=== PATIENT | female | born 1950 | race Caucasian/White ===

== ENCOUNTER 2019-08-25 09:46 | Outpatient (CLI) | payer MEDICARE ==
[2019-08-25 11:11] LABS: BASOPHILS # (AUTO) 0.04 x10^3/uL (0-0.1); BASOPHILS % (AUTO) 1 % (0-1); EOSINOPHILS # (AUTO) 0.03 x10^3/uL (0-0.4); EOSINOPHILS % (AUTO) 1 % (1-7); LYMPHOCYTES # (AUTO) 2.04 x10^3/uL (1-3.4); LYMPHOCYTES % (AUTO) 38 % (22-44); MD NO; MEAN CORPUSCULAR HEMOGLOBIN 30.6 pg (27.0-34.8); MEAN CORPUSCULAR HGB CONC 33.2 g/dL (32.4-35.8); MEAN CORPUSCULAR VOLUME 92.1 fL (80-100); MEAN PLATELET VOLUME 7.7 fL (7.4-10.4); MONOCYTES # (AUTO) 0.37 x10^3/uL (0.2-0.8); MONOCYTES % (AUTO) 7 % (2-9); NEUTROPHILS # (AUTO) 2.81 x10^3/uL (1.8-6.8); NEUTROPHILS % (AUTO) 53 % (42-75); PLATELET COUNT 295 x10^3/uL (130-400); RED BLOOD COUNT 4.84 x10^6/uL (3.82-5.3); RED CELL DISTRIBUTION WIDTH 13.5 % (9.6-15.2)
[2019-08-25 11:25] LABS: INTERNATIONAL NORMALIZED RATIO 4.35 (0.93-1.1)
[2019-08-25 11:38] LABS: PROTHROMBIN TIME 46.8 Seconds (9.6-11.5)
[2019-08-25] MEDS ORDERED: DIPH25TA52 PO (13:05)
[2019-08-25] MEDS ORDERED: WARF-36 PO (13:05)
== END 2019-08-25 23:59 | disposition home or self-care (01) ==
LOC: STAR 09:46
PROVIDERS: ATTEND Surgery
DX: Z01.818 Encounter for other preprocedural examination (principal); Z11.59 Encounter for screening for other viral diseases; Z89.611 Acquired absence of right leg above knee
CPT/HCPCS: 36415; 85025; 85610; 85730; 93005; U0001

== ENCOUNTER 2019-08-29 08:29 | Inpatient (IN) | payer MEDICARE ==
[~2019-08-29] VITALS: Ht 162.6 cm; Wt 58.0 kg
[~2019-08-29 08:29] MED LIST: DIPH25TA52 PO; WARF-36 PO
[2019-08-29] MEDS ORDERED: LACTATED RINGERS 1,000 ML IV SCH (08:38)
[2019-08-29] MEDS ORDERED: HYDR-3240 PO (08:53)
[2019-08-29] MEDS ORDERED: TRAZ-175 PO (08:53)
[2019-08-29] MEDS ORDERED: CHLORHEXIDINE 15 ML UDC ONE (08:58)
[2019-08-29] MEDS ORDERED: LORazepam 2 MG/ML, 1ML IVPush PRN (09:00)
[2019-08-29] MEDS ORDERED: ONDANSETRON 2MG/ML, 2ML IVPush PRN (09:00)
[2019-08-29] MEDS ORDERED: MIDAZOLAM 1 MG/ML, 2ML IV PRN (09:00)
[2019-08-29] MEDS ORDERED: EPHEDRINE 50 MG/ML, 1ML IVPush PRN (09:00)
[2019-08-29] MEDS ORDERED: MEPERIDINE/PF 25MG/0.5ML IVPush PRN (09:00)
[2019-08-29] MEDS ORDERED: HYDROmorphone 1 MG/ML, 1ML INJ IVPush PRN (09:00)
[2019-08-29] MEDS ORDERED: CHLORHEXIDINE 15 ML UDC MM ONE (09:00)
[2019-08-29] MEDS ORDERED: hydrALAzine 20 MG/ML, 1ML IV PRN ×2 (09:00→16:30)
[2019-08-29] MEDS ORDERED: morphine SULFATE 10 MG/ML, 1ML IVPush PRN (09:00)
[2019-08-29] MEDS ORDERED: DIPHENHYDRAMINE 50 MG/ML, 1ML IVPush PRN (09:00)
[2019-08-29] MEDS ORDERED: OXYcodone 5 MG/5 ML ORAL.SOL UDC PO PRN (09:00)
[2019-08-29] MEDS ORDERED: HYDROcodone/APAP 7.5-325MG/15ML UDC PO PRN (09:00)
[2019-08-29] MEDS ORDERED: HALOPERIDOL 5 MG/ML IV PRN (09:00)
[2019-08-29] MEDS ORDERED: LABETALOL 5MG/ML, 20ML IV PRN (09:00)
[2019-08-29] MEDS ORDERED: DIAZEPAM 5 MG/ML, 2ML IVPush PRN (09:00)
[2019-08-29] MEDS ORDERED: ALBUTEROL/IPRATROPIUM 2.5MG/0.5MG, 3 ML NPPB PRN (09:00)
[2019-08-29 09:50] LABS: INTERNATIONAL NORMALIZED RATIO 1.07 (0.93-1.1); PROTHROMBIN TIME 11.4 Seconds (9.6-11.5)
[2019-08-29] MEDS ORDERED: DIAZEPAM 5 MG TABLET PO ONE ×2 (10:00→11:30)
[2019-08-29] MEDS ORDERED: FENTANYL PF 100 MCG/2ML ONE ×3 (10:13→14:10)
[2019-08-29] MEDS ORDERED: MIDAZOLAM 1 MG/ML, 2ML ONE ×2 (10:13→14:11)
[2019-08-29] MEDS ORDERED: LIDOCAINE-MPF 2% ,5ML ONE (10:14)
[2019-08-29] MEDS ORDERED: PROPOFOL 10 MG/ML, 20ML ONE (10:14)
[2019-08-29] MEDS ORDERED: GLYCOPYRROLATE 0.2MG/1ML, 5ML ONE (10:14)
[2019-08-29] MEDS ORDERED: DEXAMETHASONE 4 MG/ML, 1ML ONE (10:14)
[2019-08-29] MEDS ORDERED: DIAZEPAM 5 MG TABLET ONE (10:16)
[2019-08-29] MEDS ORDERED: CEFAZOLIN 1,000 MG ONE (12:37)
[2019-08-29] MEDS ORDERED: ROCURONIUM 10 MG/ML,10ML ONE (12:37)
[2019-08-29] MEDS ORDERED: LIDOCAINE 2% 100MG/5ML SYRINGE ONE (13:16)
[2019-08-29] MEDS ORDERED: BUPIVACAINE/PF 0.5% ONE (13:16)
[2019-08-29] MEDS ORDERED: OXYcodone 5 MG/5 ML ORAL.SOL UDC ONE (14:00)
[2019-08-29] MEDS: FENTANYL PF 100 MCG/2ML IV PRN ×4 (14:06→14:48)
[2019-08-29] MEDS: HYDROmorphone PCA 30 MG/30 ML IV PRN (15:05)
[2019-08-29] MEDS ORDERED: DIPHENHYDRAMINE 50 MG/ML, 1ML IV PRN (16:30)
[2019-08-29] MEDS ORDERED: DIPHENHYDRAMINE 25 MG CAPSULE PO PRN (16:30)
[2019-08-29] MEDS: POTASSIUM CHLORIDE 20 MEQ in D5%-0.45% NACL 1,000 ML IV SCH (16:30)
[2019-08-29] MEDS ORDERED: ONDANSETRON 2MG/ML, 2ML IV PRN (17:00)
[2019-08-29] MEDS: ENOXAPARIN 40 MG/0.4 ML SQ SCH (17:36)
[2019-08-29] MEDS ORDERED: MELATONIN 5 MG TABLET PO PRN (18:00)
[2019-08-29 18:40] VITALS: BP 127/64
[2019-08-29] MEDS: TRAZODONE 100MG TABLET PO SCH (21:08)
[2019-08-30 00:05] VITALS: BP 145/70
[2019-08-30] MEDS: POTASSIUM CHLORIDE 20 MEQ in D5%-0.45% NACL 1,000 ML IV SCH ×2 (00:32→21:01)
[2019-08-30 03:37] VITALS: BP 118/64
[2019-08-30 05:37] LABS: BASOPHILS # (AUTO) 0.01 x10^3/uL (0-0.1); BASOPHILS % (AUTO) 0 % (0-1); EOSINOPHILS % (AUTO) 0 % (1-7); LYMPHOCYTES % (AUTO) 9 % (22-44); MD NO; MEAN CORPUSCULAR HEMOGLOBIN 30.4 pg (27.0-34.8); MEAN CORPUSCULAR HGB CONC 32.9 g/dL (32.4-35.8); MEAN CORPUSCULAR VOLUME 92.3 fL (80-100); MONOCYTES % (AUTO) 7 % (2-9); NEUTROPHILS # (AUTO) 10.06 x10^3/uL (1.8-6.8); NEUTROPHILS % (AUTO) 84 % (42-75); PLATELET COUNT 282 x10^3/uL (130-400); RED BLOOD COUNT 4.38 x10^6/uL (3.82-5.3); RED CELL DISTRIBUTION WIDTH 13.5 % (9.6-15.2)
[2019-08-30 05:47] LABS: ALBUMIN 3.7 g/dL (3.4-5.0); ANION GAP 8 mmol/L (5-15); CALCIUM 9.2 mg/dL (8.5-10.1); CHLORIDE 103 mmol/L (98-107); CREATININE 1.03 mg/dL (0.55-1.02)
[2019-08-30] MEDS ORDERED: ALBUTEROL SULFATE 2.5 MG/3 ML NPPB PRN (06:00)
[2019-08-30 08:32] VITALS: BP 141/59
[2019-08-30 12:41] VITALS: BP 130/69
[2019-08-30] MEDS: ENOXAPARIN 40 MG/0.4 ML SQ SCH (17:51)
[2019-08-30 20:28] VITALS: BP 148/63
[2019-08-30] MEDS: TRAZODONE 100MG TABLET PO SCH (21:01)
[2019-08-31] MEDS: HYDROmorphone PCA 30 MG/30 ML IV PRN (00:05)
[2019-08-31 03:48] VITALS: BP 165/66
[2019-08-31 04:44] LABS: BASOPHILS # (AUTO) 0.03 x10^3/uL (0-0.1); BASOPHILS % (AUTO) 0 % (0-1); EOSINOPHILS % (AUTO) 0 % (1-7); LYMPHOCYTES # (AUTO) 1.44 x10^3/uL (1-3.4); LYMPHOCYTES % (AUTO) 17 % (22-44); MD NO; MEAN CORPUSCULAR HEMOGLOBIN 29.9 pg (27.0-34.8); MEAN CORPUSCULAR HGB CONC 32.2 g/dL (32.4-35.8); MEAN CORPUSCULAR VOLUME 92.7 fL (80-100); MEAN PLATELET VOLUME 7.8 fL (7.4-10.4); MONOCYTES # (AUTO) 0.81 x10^3/uL (0.2-0.8); MONOCYTES % (AUTO) 10 % (2-9); NEUTROPHILS # (AUTO) 6.16 x10^3/uL (1.8-6.8); NEUTROPHILS % (AUTO) 73 % (42-75); PLATELET COUNT 249 x10^3/uL (130-400); RED BLOOD COUNT 4.14 x10^6/uL (3.82-5.3); RED CELL DISTRIBUTION WIDTH 13.5 % (9.6-15.2)
[2019-08-31 04:52] LABS: ALANINE AMINOTRANSFERASE 29 U/L (12-78); ALBUMIN 3.5 g/dL (3.4-5.0); ANION GAP 8 mmol/L (5-15); CALCIUM 8.8 mg/dL (8.5-10.1); CHLORIDE 101 mmol/L (98-107); CREATININE 1.07 mg/dL (0.55-1.02)
[2019-08-31 04:55] LABS: ALKALINE PHOSPHATASE 54 U/L (45-117); BILIRUBIN,TOTAL 0.7 mg/dL (0.2-1.0); TOTAL PROTEIN 6.6 g/dL (6.4-8.2)
[2019-08-31] MEDS: POTASSIUM CHLORIDE 20 MEQ in D5%-0.45% NACL 1,000 ML IV SCH ×2 (05:24→16:55)
[2019-08-31] MEDS: KETOROLAC 30 MG/1 ML IV PRN (07:28)
[2019-08-31] MEDS: GABAPENTIN 100 MG CAPSULE PO PRN (08:57)
[2019-08-31] MEDS: OXYcodone/APAP 5/325MG TABLET PO PRN ×4 (08:57→21:52)
[2019-08-31] MEDS ORDERED: HYDROmorphone PCA 30 MG/30 ML IV PRN (09:00)
[2019-08-31 09:21] VITALS: BP 112/60
[2019-08-31 15:32] VITALS: BP 117/68
[2019-08-31] MEDS: ENOXAPARIN 40 MG/0.4 ML SQ SCH (16:55)
[2019-08-31 19:33] VITALS: BP 147/74
[2019-08-31] MEDS: TRAZODONE 100MG TABLET PO SCH (21:21)
[2019-09-01 00:45] VITALS: BP 133/70
[2019-09-01] MEDS: POTASSIUM CHLORIDE 20 MEQ in D5%-0.45% NACL 1,000 ML IV SCH ×3 (03:18→23:30)
[2019-09-01] MEDS: OXYcodone/APAP 5/325MG TABLET PO PRN ×5 (05:24→22:02)
[2019-09-01 07:05] VITALS: BP 130/81
[2019-09-01] MEDS: KETOROLAC 30 MG/1 ML IV PRN (07:59)
[2019-09-01] MEDS: GABAPENTIN 100 MG CAPSULE PO PRN (07:59)
[2019-09-01 13:15] VITALS: BP 128/62
[2019-09-01] MEDS: GABAPENTIN 300 MG CAPSULE PO SCH ×2 (17:15→21:07)
[2019-09-01] MEDS: ENOXAPARIN 40 MG/0.4 ML SQ SCH (17:15)
[2019-09-01 19:03] VITALS: BP 121/56
[2019-09-01] MEDS: FENTANYL PF 100 MCG/2ML IVPush PRN ×2 (20:54→21:07)
[2019-09-01] MEDS: DOCUSATE 100 MG CAPSULE PO SCH (21:07)
[2019-09-01] MEDS: TRAZODONE 100MG TABLET PO SCH (21:07)
[2019-09-02 02:09] VITALS: BP 150/72
[2019-09-02] MEDS: OXYcodone/APAP 5/325MG TABLET PO PRN ×4 (02:14→13:59)
[2019-09-02 07:00] VITALS: BP 165/78
[2019-09-02] MEDS: GABAPENTIN 300 MG CAPSULE PO SCH (08:14)
[2019-09-02] MEDS: DOCUSATE 100 MG CAPSULE PO SCH (08:14)
[2019-09-02] MEDS: POTASSIUM CHLORIDE 20 MEQ in D5%-0.45% NACL 1,000 ML IV SCH (08:14)
[2019-09-02 09:29] VITALS: BP 155/78
[2019-09-02] MEDS: FENTANYL PF 100 MCG/2ML IVPush PRN (10:44)
[2019-09-02 13:24] VITALS: BP 103/53
[2019-09-02] MEDS ORDERED: OXYC-302 PO (14:00)
[2019-09-02] MEDS ORDERED: OXYC30TA66 PO (14:01)
[2019-09-02] MEDS ORDERED: GABA600T7 PO (14:02)
== END 2019-09-02 14:40 | disposition home health service (06) | DRG 241 ==
LOC: ORIP 08:29 → EDSTATUS 11:00 → 4NE 15:57 → DCLOUNGE 09-02 14:24
PROVIDERS: ADMIT Surgery; ATTEND Surgery
PROC: 0Y6H0Z1 Detachment at Right Lower Leg, High, Open Approach (ICD-10-PCS; principal; 2019-08-29 11:00)
DX: I70.221 Atherosclerosis of native arteries of extremities with rest pain, right leg (principal); D72.829 Elevated white blood cell count, unspecified; F51.04 Psychophysiologic insomnia; I25.10 Atherosclerotic heart disease of native coronary artery without angina pectoris; J44.9 Chronic obstructive pulmonary disease, unspecified; G89.29 Other chronic pain; R73.9 Hyperglycemia, unspecified; F17.210 Nicotine dependence, cigarettes, uncomplicated; Z85.828 Personal history of other malignant neoplasm of skin; Z79.01 Long term (current) use of anticoagulants; Z90.49 Acquired absence of other specified parts of digestive tract; Z90.89 Acquired absence of other organs; Z71.6 Tobacco abuse counseling
CPT/HCPCS: 36415; 80048; 80053; 82040; 83036; 85025; 85610; 85730; 88307; 88311; C1729; G0378; J0690; J1100; J1170; J1650; J1885; J2250; J2704; J3010; J3480; J7120

== ENCOUNTER 2019-09-16 21:01 | Inpatient (IN) | payer MEDICARE ==
[~2019-09-16] VITALS: Ht 162.6 cm; Wt 63.0 kg
[~2019-09-16 21:01] MED LIST changes: +GABA600T7 PO; +HYDR-3240 PO; +OXYC-302 PO; +OXYC30TA66 PO; +TRAZ-175 PO
--- NOTE | 2019-09-16 21:03 | NUR ---
PATIENT TRANSPORTED WITH IV HEPARIN THERAPY INITIATED AT 6.9ML/HR
--- NOTE | 2019-09-16 21:16 | NUR ---
PATIENT PLACED ON WEIGHT SCALED BED TO ENSURE PROPER DOSAGE OF HEPARIN THERAPY IF THERAPY IS CONTINUED.
[2019-09-16] MEDS ORDERED: ACETAMINOPHEN 500 MG TABLET ONE (21:18)
[2019-09-16] MEDS ORDERED: ACETAMINOPHEN 500 MG TABLET PO ONE (21:30)
[2019-09-16 21:55] LABS: ALBUMIN 2.5 g/dL (3.4-5.0); ANION GAP 6 mmol/L (5-15); CALCIUM 8.7 mg/dL (8.5-10.1); CHLORIDE 95 mmol/L (98-107)
[2019-09-16] MEDS ORDERED: HEPARIN 25,000 UNITS/250ML PMX 250 ML ONE (22:04)
[2019-09-16] MEDS ORDERED: HEPARIN 5,000 UNITS/ML, 1ML ONE (22:05)
[2019-09-16] MEDS ORDERED: HEPARIN 25,000 UNITS/250ML PMX 250 ML IV PRN (22:30)
[2019-09-16] MEDS ORDERED: HEPARIN 5,000 UNITS/ML, 1ML IV ONE (22:30)
--- NOTE | 2019-09-16 22:37 | NUR ---
ASSIST RN: HEPARIN BOLUS NOT DONE BECAUSE PT WAS BOLUSED AT SENDING FACILITY AND TRANSFERED WITH HEPARIN DRIP.
--- NOTE | 2019-09-16 22:47 | NUR ---
ASSIST RN: PT SITTING IN BED, NO SIGNS OF DISTRESS, NO COMPLAINTS. TOLERATED STRAIGHT CATH WELL. ERP BACK TO BEDSIDE TO UPDATE PT ON POC, ALL QUESTIONS ANSERED. PT POSISTIONED TO COMFORT, CALL LIGHT WITHIN REACH AND PROVIDED FOOD, WITH MD BARRON.
[2019-09-16] MEDS ORDERED: CEFTRIAXONE PMX 1GM/50ML 50 ML IV ONE (23:00)
[2019-09-16 23:02] LABS: MICROSCOPIC INDICATED
[2019-09-16] MEDS: D5%-0.45% NACL 1,000 ML IV SCH (23:36)
[2019-09-16] MEDS ORDERED: CEFTRIAXONE PMX 1GM/50ML 50 ML ONE (23:52)
[2019-09-16] MEDS ORDERED: ONDANSETRON 2MG/ML, 2ML ONE (23:52)
[2019-09-16] MEDS ORDERED: MORPHINE SULFATE 4 MG/ML, 1ML ONE (23:52)
[2019-09-17] MEDS ORDERED: DOCUSATE 100 MG CAPSULE PO PRN
[2019-09-17] MEDS ORDERED: hydrALAzine 20 MG/ML, 1ML IVPush PRN
[2019-09-17] MEDS ORDERED: ONDANSETRON 2MG/ML, 2ML IVPush PRN
[2019-09-17] MEDS ORDERED: morphine SULFATE 10 MG/ML, 1ML IVPush PRN
[2019-09-17] MEDS ORDERED: OXYCODONE HCL PO SCH
[2019-09-17] MEDS ORDERED: ACETAMINOPHEN 325 MG TABLET PO PRN
[2019-09-17] MEDS ORDERED: CYCLOBENZAPRINE 10 MG TABLET PO PRN
[2019-09-17] MEDS ORDERED: MELATONIN 5 MG TABLET PO PRN
[2019-09-17 01:19] VITALS: BP 114/75
[2019-09-17] MEDS ORDERED: HEPARIN GTT MC SCH (01:30)
[2019-09-17] MEDS ORDERED: OXYCONTIN MC SCH (01:30)
[2019-09-17] MEDS: NICOTINE 14MG/24 HR PATCH.TD24 TD SCH (01:34)
[2019-09-17] MEDS ORDERED: HEPARIN 25,000 UNITS/250ML PMX 250 ML IV PRN (03:00)
[2019-09-17 04:49] LABS: MEAN CORPUSCULAR HEMOGLOBIN 29.3 pg (27.0-34.8); MEAN CORPUSCULAR HGB CONC 32.4 g/dL (32.4-35.8); MEAN CORPUSCULAR VOLUME 90.4 fL (80-100); PLATELET COUNT 462 x10^3/uL (130-400); RED BLOOD COUNT 3.36 x10^6/uL (3.82-5.3); RED CELL DISTRIBUTION WIDTH 13.7 % (9.6-15.2)
[2019-09-17 04:56] LABS: BASOPHILS # (AUTO) 0.02 x10^3/uL (0-0.1); BASOPHILS % (AUTO) 0 % (0-1); EOSINOPHILS # (AUTO) 0.01 x10^3/uL (0-0.4); EOSINOPHILS % (AUTO) 0 % (1-7); LYMPHOCYTES # (AUTO) 1.47 x10^3/uL (1-3.4); LYMPHOCYTES % (AUTO) 10 % (22-44); MD NO; MONOCYTES # (AUTO) 1.46 x10^3/uL (0.2-0.8); MONOCYTES % (AUTO) 10 % (2-9); NEUTROPHILS # (AUTO) 12.03 x10^3/uL (1.8-6.8); NEUTROPHILS % (AUTO) 80 % (42-75)
[2019-09-17 04:59] LABS: ANION GAP 10 mmol/L (5-15); CHLORIDE 96 mmol/L (98-107)
[2019-09-17 05:00] LABS: CALCIUM 8.2 mg/dL (8.5-10.1); CREATININE 0.95 mg/dL (0.55-1.02)
[2019-09-17] MEDS: HEPARIN 5,000 UNITS/ML, 1ML IV PRN ×3 (05:19→20:21)
[2019-09-17 07:57] VITALS: BP 114/55
[2019-09-17] MEDS: GABAPENTIN 300 MG CAPSULE PO SCH ×3 (09:29→17:26)
[2019-09-17] MEDS: D5%-0.45% NACL 1,000 ML IV SCH (09:30)
[2019-09-17] MEDS ORDERED: OMNIPAQUE 350 MG/ML, 100ML BOTTLE ONE (12:30)
[2019-09-17 15:59] VITALS: BP 126/70
[2019-09-17 19:20] VITALS: BP 114/71
[2019-09-17] MEDS: OXYcodone/APAP 10/325MG TABLET PO PRN (21:40)
[2019-09-17] MEDS: TRAZODONE 100MG TABLET PO SCH (22:18)
[2019-09-18] MEDS: HEPARIN 25,000 UNITS/250ML PMX 250 ML IV PRN ×2 (00:17→20:45)
[2019-09-18 01:01] VITALS: BP 111/64
[2019-09-18] MEDS: D5%-0.45% NACL 1,000 ML IV SCH ×3 (01:04→17:57)
[2019-09-18] MEDS: NICOTINE 14MG/24 HR PATCH.TD24 TD SCH ×2 (01:05→23:08)
[2019-09-18] MEDS: GABAPENTIN 300 MG CAPSULE PO SCH ×4 (01:05→23:08)
[2019-09-18] MEDS: HEPARIN 5,000 UNITS/ML, 1ML IV PRN ×3 (03:06→23:08)
[2019-09-18 06:55] VITALS: BP 122/69
[2019-09-18] MEDS: OXYcodone/APAP 10/325MG TABLET PO PRN ×2 (09:45→20:56)
[2019-09-18 14:00] VITALS: BP 103/64
[2019-09-18] MEDS: HYDROcodone/APAP 5/325 TABLET PO PRN (17:55)
[2019-09-18 20:38] VITALS: BP 82/48
[2019-09-18] MEDS: TRAZODONE 100MG TABLET PO SCH (20:56)
[2019-09-19 02:13] VITALS: BP 122/66
[2019-09-19] MEDS: OXYcodone/APAP 10/325MG TABLET PO PRN ×3 (02:47→21:22)
[2019-09-19 04:09] LABS: BASOPHILS # (AUTO) 0.03 x10^3/uL (0-0.1); BASOPHILS % (AUTO) 0 % (0-1); EOSINOPHILS # (AUTO) 0.06 x10^3/uL (0-0.4); EOSINOPHILS % (AUTO) 1 % (1-7); LYMPHOCYTES % (AUTO) 15 % (22-44); MD NO; MEAN CORPUSCULAR HEMOGLOBIN 29.8 pg (27.0-34.8); MEAN CORPUSCULAR HGB CONC 32.9 g/dL (32.4-35.8); MEAN CORPUSCULAR VOLUME 90.6 fL (80-100); MEAN PLATELET VOLUME 6.7 fL (7.4-10.4); MONOCYTES # (AUTO) 1.01 x10^3/uL (0.2-0.8); MONOCYTES % (AUTO) 10 % (2-9); NEUTROPHILS # (AUTO) 7.46 x10^3/uL (1.8-6.8); NEUTROPHILS % (AUTO) 74 % (42-75); PLATELET COUNT 552 x10^3/uL (130-400); RED BLOOD COUNT 2.84 x10^6/uL (3.82-5.3)
[2019-09-19 04:19] LABS: ANION GAP 7 mmol/L (5-15); CALCIUM 7.9 mg/dL (8.5-10.1); CHLORIDE 103 mmol/L (98-107); CREATININE 0.68 mg/dL (0.55-1.02)
[2019-09-19] MEDS: D5%-0.45% NACL 1,000 ML IV SCH ×2 (05:00→17:10)
[2019-09-19 07:25] VITALS: BP 101/58
[2019-09-19] MEDS: GABAPENTIN 300 MG CAPSULE PO SCH ×3 (09:00→17:26)
[2019-09-19] MEDS: morphine SULFATE 10 MG/ML, 1ML IVPush PRN ×2 (11:44→14:12)
[2019-09-19] MEDS ORDERED: CHLORHEXIDINE 15 ML UDC MM ONE (13:00)
[2019-09-19 14:19] VITALS: BP 105/58
[2019-09-19] MEDS: HEPARIN 5,000 UNITS/ML, 1ML IV ONE ×2 (17:10→18:12)
[2019-09-19] MEDS: HYDROcodone/APAP 5/325 TABLET PO PRN (17:26)
[2019-09-19] MEDS: HEPARIN 25,000 UNITS/250ML PMX 250 ML IV PRN (18:19)
[2019-09-19 19:07] VITALS: BP 95/50
[2019-09-19] MEDS: TRAZODONE 100MG TABLET PO SCH (21:25)
[2019-09-20] MEDS: GABAPENTIN 300 MG CAPSULE PO SCH ×3 (01:08→16:23)
[2019-09-20] MEDS: HEPARIN 5,000 UNITS/ML, 1ML IV PRN ×3 (01:08→21:57)
[2019-09-20] MEDS: NICOTINE 14MG/24 HR PATCH.TD24 TD SCH (01:09)
[2019-09-20 01:33] VITALS: BP 109/62
[2019-09-20] MEDS: D5%-0.45% NACL 1,000 ML IV SCH ×2 (04:23→16:23)
[2019-09-20] MEDS: OXYcodone/APAP 10/325MG TABLET PO PRN ×3 (05:10→20:35)
[2019-09-20 06:21] VITALS: BP 90/46
[2019-09-20 07:13] LABS: BASOPHILS # (AUTO) 0.02 x10^3/uL (0-0.1); BASOPHILS % (AUTO) 0 % (0-1); EOSINOPHILS # (AUTO) 0.03 x10^3/uL (0-0.4); EOSINOPHILS % (AUTO) 0 % (1-7); LYMPHOCYTES # (AUTO) 1.32 x10^3/uL (1-3.4); LYMPHOCYTES % (AUTO) 13 % (22-44); MD NO; MEAN CORPUSCULAR HEMOGLOBIN 29.4 pg (27.0-34.8); MEAN CORPUSCULAR HGB CONC 32.3 g/dL (32.4-35.8); MEAN CORPUSCULAR VOLUME 91.1 fL (80-100); MEAN PLATELET VOLUME 6.6 fL (7.4-10.4); MONOCYTES # (AUTO) 0.94 x10^3/uL (0.2-0.8); MONOCYTES % (AUTO) 10 % (2-9); NEUTROPHILS # (AUTO) 7.54 x10^3/uL (1.8-6.8); NEUTROPHILS % (AUTO) 77 % (42-75); PLATELET COUNT 612 x10^3/uL (130-400); RED BLOOD COUNT 3.05 x10^6/uL (3.82-5.3)
[2019-09-20 07:22] LABS: ANION GAP 6 mmol/L (5-15); CALCIUM 8.7 mg/dL (8.5-10.1); CHLORIDE 106 mmol/L (98-107); CREATININE 0.75 mg/dL (0.55-1.02)
[2019-09-20] MEDS ORDERED: FENTANYL PF 100 MCG/2ML ONE ×2 (10:17→12:33)
[2019-09-20] MEDS ORDERED: MIDAZOLAM 1 MG/ML, 2ML ONE (10:17)
[2019-09-20] MEDS ORDERED: hydrALAzine 20 MG/ML, 1ML IV PRN (11:00)
[2019-09-20] MEDS ORDERED: ALBUTEROL SULFATE 2.5 MG/3 ML NPPB PRN (11:00)
[2019-09-20] MEDS ORDERED: MEPERIDINE/PF 25MG/0.5ML IVPush PRN (11:00)
[2019-09-20] MEDS ORDERED: HYDROmorphone 1 MG/ML, 1ML INJ IVPush PRN (11:00)
[2019-09-20] MEDS ORDERED: ACETAMINOPHEN 325 MG TABLET PO PRN (11:00)
[2019-09-20] MEDS ORDERED: PROMETHAZINE 25 MG/ML, 1ML IVPush PRN (11:00)
[2019-09-20] MEDS ORDERED: OXYcodone 5 MG/5 ML ORAL.SOL UDC PO PRN (11:00)
[2019-09-20] MEDS ORDERED: LABETALOL 5MG/ML, 20ML IV PRN (11:00)
[2019-09-20] MEDS ORDERED: LORazepam 2 MG/ML, 1ML IVPush PRN (11:00)
[2019-09-20] MEDS ORDERED: LIDOCAINE 1%, 20ML ONE (11:48)
[2019-09-20] MEDS ORDERED: LIDOCAINE 1%, 20ML INFIL ONE (11:51)
[2019-09-20] MEDS ORDERED: ONDANSETRON 2MG/ML, 2ML ONE (12:16)
[2019-09-20] MEDS ORDERED: CEFAZOLIN 1,000 MG ONE (12:16)
[2019-09-20] MEDS ORDERED: DEXAMETHASONE 4 MG/ML, 1ML ONE (12:16)
[2019-09-20] MEDS ORDERED: PROPOFOL 10 MG/ML, 20ML ONE (12:16)
[2019-09-20] MEDS: FENTANYL PF 100 MCG/2ML IV PRN ×2 (12:30→12:48)
[2019-09-20] MEDS ORDERED: OXYcodone 5 MG/5 ML ORAL.SOL UDC ONE (12:33)
[2019-09-20 14:00] VITALS: BP 113/48
[2019-09-20] MEDS ORDERED: HEPARIN 5,000 UNITS/ML, 1ML IV ONE (15:30)
[2019-09-20] MEDS: morphine SULFATE 10 MG/ML, 1ML IVPush PRN (16:23)
[2019-09-20 18:52] VITALS: BP 103/57
[2019-09-20] MEDS: TRAZODONE 100MG TABLET PO SCH (20:36)
[2019-09-21] MEDS: OXYcodone/APAP 10/325MG TABLET PO PRN ×7 (00:25→23:17)
[2019-09-21] MEDS: GABAPENTIN 300 MG CAPSULE PO SCH ×3 (00:25→15:05)
[2019-09-21] MEDS: NICOTINE 14MG/24 HR PATCH.TD24 TD SCH (00:26)
[2019-09-21 00:27] VITALS: BP 120/61
[2019-09-21] MEDS: D5%-0.45% NACL 1,000 ML IV SCH ×3 (02:34→20:42)
[2019-09-21 04:30] VITALS: BP 105/69
[2019-09-21] MEDS: HEPARIN 25,000 UNITS/250ML PMX 250 ML IV PRN (04:50)
[2019-09-21 04:55] LABS: INTERNATIONAL NORMALIZED RATIO 1.04 (0.93-1.1)
[2019-09-21 05:01] LABS: ANION GAP 8 mmol/L (5-15); CALCIUM 8.3 mg/dL (8.5-10.1); CHLORIDE 106 mmol/L (98-107)
[2019-09-21 05:04] LABS: CREATININE 0.75 mg/dL (0.55-1.02)
[2019-09-21] MEDS: HEPARIN 5,000 UNITS/ML, 1ML IV PRN (05:18)
[2019-09-21 05:19] LABS: BASOPHILS % (AUTO) 0 % (0-1); EOSINOPHILS % (AUTO) 0 % (1-7); LYMPHOCYTES # (AUTO) 1.37 x10^3/uL (1-3.4); LYMPHOCYTES % (AUTO) 10 % (22-44); MD NO; MEAN CORPUSCULAR HEMOGLOBIN 29.6 pg (27.0-34.8); MEAN CORPUSCULAR HGB CONC 32.6 g/dL (32.4-35.8); MEAN CORPUSCULAR VOLUME 90.8 fL (80-100); MEAN PLATELET VOLUME 7.1 fL (7.4-10.4); MONOCYTES # (AUTO) 0.79 x10^3/uL (0.2-0.8); MONOCYTES % (AUTO) 6 % (2-9); NEUTROPHILS # (AUTO) 11.68 x10^3/uL (1.8-6.8); NEUTROPHILS % (AUTO) 84 % (42-75); PLATELET COUNT 584 x10^3/uL (130-400); RED BLOOD COUNT 2.98 x10^6/uL (3.82-5.3); RED CELL DISTRIBUTION WIDTH 13.8 % (9.6-15.2)
[2019-09-21 07:43] VITALS: BP 94/53
[2019-09-21 12:08] VITALS: BP 93/53
[2019-09-21] MEDS ORDERED: FUROSEMIDE 40 MG/4 ML IV ONE (12:30)
[2019-09-21] MEDS ORDERED: WARFARIN 10 MG TABLET PO-COUM ONE (18:00)
[2019-09-21 19:39] VITALS: BP 108/69
[2019-09-21] MEDS: TRAZODONE 100MG TABLET PO SCH (20:43)
[2019-09-22] MEDS: NICOTINE 14MG/24 HR PATCH.TD24 TD SCH (00:34)
[2019-09-22] MEDS: GABAPENTIN 300 MG CAPSULE PO SCH ×3 (00:34→16:04)
[2019-09-22 02:49] VITALS: BP 107/64
[2019-09-22] MEDS: OXYcodone/APAP 10/325MG TABLET PO PRN ×5 (03:22→20:38)
[2019-09-22] MEDS: HEPARIN 25,000 UNITS/250ML PMX 250 ML IV PRN (04:01)
[2019-09-22 05:28] LABS: BASOPHILS # (AUTO) 0.04 x10^3/uL (0-0.1); BASOPHILS % (AUTO) 0 % (0-1); EOSINOPHILS # (AUTO) 0.04 x10^3/uL (0-0.4); EOSINOPHILS % (AUTO) 0 % (1-7); LYMPHOCYTES # (AUTO) 2.53 x10^3/uL (1-3.4); LYMPHOCYTES % (AUTO) 25 % (22-44); MD NO; MEAN CORPUSCULAR HEMOGLOBIN 29.4 pg (27.0-34.8); MEAN CORPUSCULAR HGB CONC 32.4 g/dL (32.4-35.8); MEAN CORPUSCULAR VOLUME 90.9 fL (80-100); MEAN PLATELET VOLUME 6.5 fL (7.4-10.4); MONOCYTES # (AUTO) 0.85 x10^3/uL (0.2-0.8); MONOCYTES % (AUTO) 8 % (2-9); NEUTROPHILS # (AUTO) 6.86 x10^3/uL (1.8-6.8); NEUTROPHILS % (AUTO) 67 % (42-75); PLATELET COUNT 635 x10^3/uL (130-400); RED BLOOD COUNT 2.85 x10^6/uL (3.82-5.3)
[2019-09-22 05:29] LABS: ANION GAP 4 mmol/L (5-15); CHLORIDE 107 mmol/L (98-107); CREATININE 0.78 mg/dL (0.55-1.02)
[2019-09-22] MEDS: HEPARIN 5,000 UNITS/ML, 1ML IV PRN ×2 (06:16→22:31)
[2019-09-22] MEDS: D5%-0.45% NACL 1,000 ML IV SCH ×2 (07:59→18:24)
[2019-09-22 08:00] VITALS: BP 115/67
[2019-09-22] MEDS: morphine SULFATE 10 MG/ML, 1ML IVPush PRN (09:26)
[2019-09-22 10:04] LABS: INTERNATIONAL NORMALIZED RATIO 1.07 (0.93-1.1); PROTHROMBIN TIME 11.4 Seconds (9.6-11.5)
[2019-09-22 14:00] VITALS: BP 112/60
[2019-09-22] MEDS ORDERED: POLYETHYLENE GLYCOL 17 GM PACKET PO PRN (14:30)
[2019-09-22] MEDS ORDERED: MAGNESIUM HYDROXIDE 8%, 30ML UDC PO PRN (14:30)
[2019-09-22] MEDS ORDERED: POTASSIUM CHLORIDE 20 MEQ TAB.ER.PRT PO ONE (15:00)
[2019-09-22] MEDS ORDERED: FENTANYL PF 100 MCG/2ML ONE (16:13)
[2019-09-22] MEDS ORDERED: FENTANYL PF 100 MCG/2ML IVPush ONE (16:30)
[2019-09-22] MEDS ORDERED: WARFARIN 10 MG TABLET PO-COUM ONE (18:00)
[2019-09-22 19:47] VITALS: BP 145/67
[2019-09-22] MEDS: TRAZODONE 100MG TABLET PO SCH (20:50)
[2019-09-23] MEDS: HEPARIN 25,000 UNITS/250ML PMX 250 ML IV PRN (00:20)
[2019-09-23] MEDS: NICOTINE 14MG/24 HR PATCH.TD24 TD SCH (00:32)
[2019-09-23] MEDS: GABAPENTIN 300 MG CAPSULE PO SCH ×3 (00:33→16:08)
[2019-09-23] MEDS: OXYcodone/APAP 10/325MG TABLET PO PRN ×4 (00:39→17:15)
[2019-09-23 03:50] VITALS: BP 119/60
[2019-09-23] MEDS: D5%-0.45% NACL 1,000 ML IV SCH (04:39)
[2019-09-23 05:25] LABS: BASOPHILS # (AUTO) 0.03 x10^3/uL (0-0.1); BASOPHILS % (AUTO) 0 % (0-1); EOSINOPHILS # (AUTO) 0.05 x10^3/uL (0-0.4); EOSINOPHILS % (AUTO) 1 % (1-7); LYMPHOCYTES # (AUTO) 2.06 x10^3/uL (1-3.4); LYMPHOCYTES % (AUTO) 23 % (22-44); MD NO; MEAN CORPUSCULAR HEMOGLOBIN 29.3 pg (27.0-34.8); MEAN CORPUSCULAR HGB CONC 31.9 g/dL (32.4-35.8); MEAN CORPUSCULAR VOLUME 91.8 fL (80-100); MEAN PLATELET VOLUME 6.4 fL (7.4-10.4); MONOCYTES # (AUTO) 0.77 x10^3/uL (0.2-0.8); MONOCYTES % (AUTO) 9 % (2-9); NEUTROPHILS # (AUTO) 6.12 x10^3/uL (1.8-6.8); NEUTROPHILS % (AUTO) 68 % (42-75); PLATELET COUNT 714 x10^3/uL (130-400); RED BLOOD COUNT 3.12 x10^6/uL (3.82-5.3); RED CELL DISTRIBUTION WIDTH 14.4 % (9.6-15.2)
[2019-09-23 05:29] LABS: INTERNATIONAL NORMALIZED RATIO 2.39 (0.93-1.1); PROTHROMBIN TIME 25.6 Seconds (9.6-11.5)
[2019-09-23 05:34] LABS: ANION GAP 4 mmol/L (5-15); CALCIUM 8.6 mg/dL (8.5-10.1); CHLORIDE 108 mmol/L (98-107)
[2019-09-23 05:35] LABS: CREATININE 0.78 mg/dL (0.55-1.02)
[2019-09-23 08:35] VITALS: BP 105/62
[2019-09-23 13:20] VITALS: BP 99/60
[2019-09-23 15:43] LABS: INTERNATIONAL NORMALIZED RATIO 3.08 (0.93-1.1)
== END 2019-09-23 17:30 | disposition home health service (06) | DRG 464 ==
LOC: ED 22:50 → EDIP 23:00 → ED 23:46 → 3N 09-17 01:16 → 4NE 09-19 20:15
PROVIDERS: ADMIT Student in an Organized Health Care Education/Training Program; ATTEND Hospitalist
PROC: 0T9B70Z Drainage of Bladder with Drainage Device, Via Natural or Artificial Opening (ICD-10-PCS; 2019-09-16)
PROC: 0JBN0ZZ Excision of Right Lower Leg Subcutaneous Tissue and Fascia, Open Approach (ICD-10-PCS; principal; 2019-09-23)
DX: T87.53 Necrosis of amputation stump, right lower extremity (principal); I82.513 Chronic embolism and thrombosis of femoral vein, bilateral; E87.1 Hypo-osmolality and hyponatremia; E46 Unspecified protein-calorie malnutrition; I74.5 Embolism and thrombosis of iliac artery; I82.532 Chronic embolism and thrombosis of left popliteal vein; I73.9 Peripheral vascular disease, unspecified; D72.829 Elevated white blood cell count, unspecified; E87.6 Hypokalemia; F17.210 Nicotine dependence, cigarettes, uncomplicated; G47.00 Insomnia, unspecified; R79.89 Other specified abnormal findings of blood chemistry; R33.9 Retention of urine, unspecified; E88.09 Other disorders of plasma-protein metabolism, not elsewhere classified; D63.8 Anemia in other chronic diseases classified elsewhere; Z79.01 Long term (current) use of anticoagulants; Z85.828 Personal history of other malignant neoplasm of skin; Z20.828 Contact with and (suspected) exposure to other viral communicable diseases; Z90.89 Acquired absence of other organs; Z90.49 Acquired absence of other specified parts of digestive tract; Y83.5 Amputation of limb(s) as the cause of abnormal reaction of the patient, or of later complication, without mention of misadventure at the time of the procedure
CPT/HCPCS: 36415; 71045; 74177; 80048; 81001; 82040; 83605; 83735; 84100; 84145; 85025; 85520; 85610; 87040; 87635; 93005; G0378; J0690; J0696; J1100; J1644; J1940; J2250; J2405; J2704; J3010; Q9967; J2270